=== PATIENT | female | born 1990 | race Caucasian/White ===

== ENCOUNTER 2023-05-07 20:36 | Emergency (ER) | payer OTHER, SELFPAY ==
[2023-05-07 20:38] VITALS: BP 166/94; PULSE 80; RESP 16; TEMP 36.3; O2SAT 100
--- NOTE | 2023-05-07 21:14 | ED.GENADULT ---
[facility] - General Adult General Chief complaint: Extremity Injury, Lower Stated complaint: Left Leg Injury Time Seen by Provider: 05/07/23 20:52 Source: patient Mode of arrival: ambulatory Limitations: no limitations History of Present Illness HPI narrative: This is a 33-year-old female who presents to the ED with chief complaint of left posterior thigh pain following an injury this evening. Patient states that she was holding her child when her kitten walked under her and she fell in order to avoid stepping on the animal. Patient states that her leg went forward and she felt like her knee hyperextended as she fell to the ground. Reports pain in the posterior thigh and no further location. Denies any numbness or weakness. Related Data Home Medications Medication Instructions Recorded Confirmed loratadine 10 mg tablet (Claritin) 10 mg PO DAILY 02/02/22 03/30/23 Allergies Allergy/AdvReac Type Severity Reaction Status Date / Time No Known Allergies Allergy Verified 03/30/23 08:06 Review of Systems Review of Systems: All systems as dictated in [facility] Past Medical History Medical History (Updated 05/07/23 @ 21:16 by Jamarcus Tao PA-C) Bipolar 1 disorder IFG (impaired fasting glucose) Tonsillectomy planned Family History Family History Father Diabetes mellitus Hypertension Mother Hypertension Social History Social History Smoking status: Never smoker Alcohol intake: current Alcohol use details: socially Substance use: never Substance use type: does not use Lack of Transportation: No Lack of Food: Never True Current Housing: I Have Housing Concerned About Future Housing: No Difficulty Paying Gas/Electric Bills: No Difficulty Paying for Meds: No Currently Unemployed: No Education: High School Diploma/GED Difficulty w/ Childcare or Family Care: No Exam Narrative: GENERAL: Well-appearing, well-nourished, and in no acute distress. HEAD: Normocephalic, atraumatic. EYES: PERRLA and EOMI. ENT: Nares clear, no rhinorrhea or epistaxis. Mucous membranes moist. Oropharynx without tonsillar hypertrophy exudate or other lesions. NECK: Supple. No adenopathy or masses. CHEST: No respiratory distress. Clear to auscultation. No wheezes rales or rhonchi HEART: Regular rate and rhythm. No murmur heard. Normal peripheral pulses. ABDOMEN: Soft, nontender, nondistended, normal active bowel sounds. MSK: LLE: No deformity in the hip or knee. Tenderness in the left posterior thigh tracking along the hamstrings distribution. Tenderness begins posterior to the knee and ends in the mid posterior thigh. No skin changes. Neurovascularly intact distally. Full active and passive range of motion of the knee and hip RLE: Benign SKIN: Warm, dry, no rash. NEURO: Alert and oriented x3. No focal deficits. PSYCH: Normal mood and affect. Course Vital Signs Vital signs: Vital Signs Temperature 97.3 F L 05/07/23 20:38 Pulse Rate 80 05/07/23 20:38 Respiratory Rate 16 05/07/23 20:38 Blood Pressure 166/94 H 05/07/23 20:38 Pulse Oximetry 100 05/07/23 20:38 Oxygen Delivery Room Air 05/07/23 20:38 Temperature 97.3 F L 05/07/23 20:38 Pulse Rate 80 05/07/23 20:38 Respiratory Rate 16 05/07/23 20:38 Blood Pressure 166/94 H 05/07/23 20:38 Pulse Oximetry 100 05/07/23 20:38 Oxygen Delivery Room Air 05/07/23 20:38 Medical Decision Making MDM Narrative Medical decision making narrative: This is a 33-year-old female who presents to the ED with chief complaint of left posterior thigh pain following an injury tonight. Vitals are normal. Exam shows evidence of hamstring tenderness along the posterior left thigh. No skin changes. Normal range of motion of the knee and hip. No tenderness in the hip or knee. Symptoms are consistent with hamstring
== END 2023-05-07 21:32 | disposition home or self-care (01) ==
PROVIDERS: Emergency Provider Physician Assistant
DX: S79.922A Unspecified injury of left thigh, initial encounter (principal); W01.0XXA Fall on same level from slipping, tripping and stumbling without subsequent striking against object, initial encounter
CPT/HCPCS: 99281